=== PATIENT | female | born 1945 | race Caucasian/White ===

== ENCOUNTER 2020-01-14 11:27 | Inpatient (IN) | payer MEDICAID, MEDICARE ==
[~2020-01-14] VITALS: Ht 153.9 cm; Wt 88.5 kg
[2020-01-14] MEDS ORDERED: IBUPROFEN 600MG TABLET PO STA (12:10)
[2020-01-14 12:41] LABS: BASOPHILS % 0.7 % (0.0-2.0); EOSINOPHILS % 1.1 % (0.0-5.0); HEMATOCRIT. 27.3 % (36.0-48.0); HEMOGLOBIN. 8.6 g/dL (12.0-16.0); LYMPHOCYTES % 11.5 % (20.0-50.0); MEAN CORPUSCULAR HEMOGLOBIN 25.4 pg (28.0-32.0); MEAN CORPUSCULAR VOLUME 80.5 fL (81.0-99.0); MEAN PLATELET VOLUME 7.6 fl (7.4-10.4); MONOCYTES % 7.4 % (2.0-8.0); NEUTROPHILS % 79.3 % (40.0-76.0); PLATELET 437 x1000/uL (130-400); RED BLOOD CELL COUNT 3.39 mill/uL (4.2-5.4); RED CELL DISTRIBUTION WIDTH 16.1 % (11.6-14.6)
[2020-01-14 12:51] LABS: CHLORIDE 108 mEq/L (98-107)
[2020-01-14 14:38] LABS: CLARITY URINE CLOUDY (CLEAR); COLOR URINE YELLOW (YELLOW); KETONES URINE NEGATIVE (NEGATIVE); LEUKOCYTE ESTERASE URINE 1+ (NEGATIVE); NITRITE URINE NEGATIVE (NEGATIVE); OCCULT BLOOD URINE 1+ (NEGATIVE); PROTEIN URINE NEGATIVE (NEGATIVE); SPECIFIC GRAVITY URINE 1.013 (1.005-1.030); UROBILINOGEN URINE 0.2 E.U./dL (0.2-1.0)
[2020-01-14] MEDS ORDERED: CEFTRIAXONE 1 G PREMIX 50 ML IV ONE (15:15)
[2020-01-14] MEDS ORDERED: NA PHOS,M-B/NA PHOS,DI-BA ENEMA 118ML PR PRN (17:45)
[2020-01-14] MEDS ORDERED: DEXTROSE 50% WATER 50ML SYRINGE IV PRN (17:45)
[2020-01-14] MEDS ORDERED: DIPHENHYDRAMINE 50MG/ML VIAL IV PRN (17:45)
[2020-01-14] MEDS ORDERED: MAGNESIUM/ALUMINUM HYDROXIDE/SIMETHICONE 30ML UDC PO PRN (17:45)
[2020-01-14] MEDS ORDERED: HYDRALAZINE 20MG/ML VIAL IV PRN (17:45)
[2020-01-14] MEDS ORDERED: DOCUSATE SODIUM 100MG CAPSULE PO PRN (17:45)
[2020-01-14] MEDS ORDERED: IPRATROPIUM/ALBUTEROL 0.5-3(2.5)MG/3ML NEB NEB PRN (17:45)
[2020-01-14] MEDS ORDERED: ACETAMINOPHEN 325MG TABLET PO PRN (17:45)
[2020-01-14] MEDS ORDERED: GUAIFENESIN 200MG/10ML SUGAR FREE UDC PO PRN (17:45)
[2020-01-14] MEDS ORDERED: CLONIDINE 0.1MG TABLET PO PRN (17:45)
[2020-01-14] MEDS ORDERED: LORAZEPAM 2MG/ML CPJ IV PRN (17:45)
[2020-01-14] MEDS ORDERED: ONDANSETRON HCL 4MG/2ML INJ IV PRN (17:45)
[2020-01-14] MEDS ORDERED: INSULIN LISPRO 100 UNITS/ML SUBCUT SCH (18:20)
[2020-01-14] MEDS ORDERED: HYDROCODONE/ACETAMINOPHEN 10/325MG TABLET PO PRN (20:01)
[2020-01-14] MEDS ORDERED: MORPHINE SULFATE 2 MG/ML CPJ (NOT FOR IM USE) IV PRN (20:02)
[2020-01-14] MEDS: BLOOD SUGAR DIAGNOSTIC STRIP TEST SCH (22:08)
[2020-01-14] MEDS: SODIUM CHLORIDE 0.45% 1,000 ML IV SCH ×2 (22:24→22:30)
[2020-01-14 23:30] VITALS: BP 129/69
[2020-01-15] MEDS ORDERED: LISI40TA4 MT (00:08)
[2020-01-15] MEDS ORDERED: FERR325T6 MT (00:08)
[2020-01-15] MEDS ORDERED: METO-539 MT (00:08)
[2020-01-15] MEDS ORDERED: GLIM2TAB30 MT (00:08)
[2020-01-15 00:24] VITALS: BP 129/69
[2020-01-15] MEDS ORDERED: HYDRALAZINE 10 MG in DEXTROSE 5% WATER 50 ML IV PRN (01:00)
[2020-01-15 04:43] VITALS: BP 136/76
[2020-01-15] MEDS: BLOOD SUGAR DIAGNOSTIC STRIP TEST SCH ×3 (06:46→18:06)
[2020-01-15] MEDS: SODIUM CHLORIDE 0.9% INJ 3ML FLUSH IVF SCH ×2 (06:51→13:48)
[2020-01-15] MEDS: INSULIN LISPRO 100 UNITS/ML SUBCUT SCH ×3 (07:39→17:50)
[2020-01-15 07:47] LABS: BASOPHILS % 0.4 % (0.0-2.0); EOSINOPHILS % 1.4 % (0.0-5.0); HEMATOCRIT. 25.3 % (36.0-48.0); HEMOGLOBIN. 8.1 g/dL (12.0-16.0); LYMPHOCYTES % 9.6 % (20.0-50.0); MEAN CORPUSCULAR HEMOGLOBIN 25.7 pg (28.0-32.0); MEAN CORPUSCULAR VOLUME 80.4 fL (81.0-99.0); MEAN PLATELET VOLUME 7.7 fl (7.4-10.4); MONOCYTES % 7.3 % (2.0-8.0); NEUTROPHILS % 81.3 % (40.0-76.0); PLATELET 391 x1000/uL (130-400); RED BLOOD CELL COUNT 3.14 mill/uL (4.2-5.4)
[2020-01-15 07:57] LABS: CHLORIDE 110 mEq/L (98-107)
[2020-01-15] MEDS ORDERED: ENOXAPARIN 40MG/0.4ML SYR SUBCUT SCH (09:00)
[2020-01-15] MEDS ORDERED: ENOXAPARIN 30MG/0.3ML SYR SUBCUT SCH (09:00)
[2020-01-15] MEDS ORDERED: CEFTRIAXONE 1 G PREMIX 50 ML IV SCH ×2 (16:00→18:00)
== END 2020-01-15 19:50 | disposition home health service (06) | DRG 554 ==
LOC: ER 11:27 → 6EST 17:14 → ENRESERV 22:26
PROVIDERS: ADMIT Internal Medicine; ATTEND Internal Medicine
DX: M17.0 Bilateral primary osteoarthritis of knee (principal); N30.00 Acute cystitis without hematuria; E44.1 Mild protein-calorie malnutrition; D64.9 Anemia, unspecified; E11.9 Type 2 diabetes mellitus without complications; I10 Essential (primary) hypertension; Z90.49 Acquired absence of other specified parts of digestive tract; Z79.899 Other long term (current) drug therapy
CPT/HCPCS: 36415; 71045; 73560; 80053; 81003; 82962; 85025; 86850; 86900; 87077; 87186; 93005; 97162; 99285; J0696; J1650

== ENCOUNTER 2021-02-22 16:27 | Emergency (ER) | payer MEDICARE, MEDICAID ==
[~2021-02-22] VITALS: Ht 157.5 cm; Wt 69.0 kg
[~2021-02-22 16:27] MED LIST: FERR325T6 MT; LISI40TA13 MT; METO-539 MT
[2021-02-22] MEDS ORDERED: SODIUM CHLORIDE 0.9% 1,000 ML IV ONE (18:45)
[2021-02-22] MEDS ORDERED: KETOROLAC 30MG/ML VIAL IV ONE (18:45)
[2021-02-22 20:59] LABS: CLARITY URINE TURBID (CLEAR); COLOR URINE DARK YELLOW (YELLOW); KETONES URINE NEGATIVE (NEGATIVE); LEUKOCYTE ESTERASE URINE 3+ (NEGATIVE); NITRITE URINE POSITIVE (NEGATIVE); OCCULT BLOOD URINE 2+ (NEGATIVE); PROTEIN URINE 2+ (NEGATIVE); SPECIFIC GRAVITY URINE 1.014 (1.005-1.030)
[2021-02-22] MEDS ORDERED: CEFTRIAXONE 1 G PREMIX 50 ML IV NR (23:30)
[2021-02-23] MEDS ORDERED: AMOX1TAB16 MT (00:17)
[2021-02-23] MEDS ORDERED: IBUP-2028 MT (00:17)
[2021-02-23 01:56] VITALS: BP 130/88
== END 2021-02-23 02:40 | disposition home or self-care (01) ==
LOC: ER 16:27
DX: N39.0 Urinary tract infection, site not specified (principal); E11.9 Type 2 diabetes mellitus without complications; I10 Essential (primary) hypertension; F03.90 Unspecified dementia, unspecified severity, without behavioral disturbance, psychotic disturbance, mood disturbance, and anxiety; Z90.49 Acquired absence of other specified parts of digestive tract
CPT/HCPCS: 81003; 82962; 87077; 87086; 87186; 96361; 96365; 96375; 99285; J0696; J1885; J7030

== ENCOUNTER 2021-08-15 13:20 | Emergency (ER) | payer MEDICARE, MEDICAID ==
[~2021-08-15] VITALS: Ht 162.6 cm; Wt 76.0 kg
[~2021-08-15 13:20] MED LIST changes: +AMOX1TAB16 MT; +IBUP-2028 MT
[2021-08-15 13:24] VITALS: BP 135/62
[2021-08-15] MEDS ORDERED: ACET-2708 MT (13:52)
[2021-08-15] MEDS ORDERED: MUPI22OI2 TP (13:52)
== END 2021-08-15 14:06 | disposition home or self-care (01) ==
LOC: ER 13:20
DX: S90.811A Abrasion, right foot, initial encounter (principal); X58.XXXA Exposure to other specified factors, initial encounter; Y93.89 Activity, other specified; Y92.89 Other specified places as the place of occurrence of the external cause; I10 Essential (primary) hypertension; E11.9 Type 2 diabetes mellitus without complications; Z79.899 Other long term (current) drug therapy
CPT/HCPCS: 99283

== ENCOUNTER 2022-12-14 16:42 | Emergency (ER) | payer MEDICARE, MEDICAID ==
[~2022-12-14] VITALS: Ht 160 cm; Wt 72.7 kg
[~2022-12-14 16:42] MED LIST changes: +ACET-2708 MT; +MUPI22OI2 TP
[2022-12-14 16:45] VITALS: BP 133/59
[2022-12-14] MEDS ORDERED: ACETAMINOPHEN 325MG TABLET PO ONE (18:00)
[2022-12-14] MEDS ORDERED: GABAPENTIN 300MG CAPSULE PO ONE (18:00)
[2022-12-14] MEDS ORDERED: VALA10002 MT (18:57)
[2022-12-14] MEDS ORDERED: GABA-529 MT (18:57)
[2022-12-14] MEDS ORDERED: TRAM50TA3 MT (18:57)
[2022-12-14] MEDS ORDERED: TRAMADOL 50MG TABLET PO ONE (19:15)
== END 2022-12-14 20:00 | disposition home or self-care (01) ==
LOC: ER 16:42
DX: B02.9 Zoster without complications (principal); M79.662 Pain in left lower leg; E11.9 Type 2 diabetes mellitus without complications; I10 Essential (primary) hypertension; Z90.710 Acquired absence of both cervix and uterus; Z90.89 Acquired absence of other organs; Z79.899 Other long term (current) drug therapy
CPT/HCPCS: 73590; 93971; 99284